=== PATIENT | male | born 1930 | race Caucasian/White ===

== ENCOUNTER 2017-02-09 08:50 | Outpatient (RCR) | payer OTHER | END 2017-02-20 | disposition home or self-care (01) | LOC: PTY 08:50 | PROVIDERS: ATTEND Internal Medicine | DX: M25.561 Pain in right knee (principal); G89.29 Other chronic pain ==

== ENCOUNTER 2017-02-23 14:30 | Outpatient (RCR) | payer OTHER | END 2017-03-23 | disposition home or self-care (01) | LOC: PTY 14:30 | PROVIDERS: ATTEND Internal Medicine | DX: M25.561 Pain in right knee (principal); G89.29 Other chronic pain ==

== ENCOUNTER 2017-12-14 12:30 | Outpatient (RCR) | payer OTHER | END 2017-12-21 | disposition home or self-care (01) | LOC: PTY 12:30 | PROVIDERS: ATTEND Internal Medicine | DX: M54.5 Low back pain (principal); G89.29 Other chronic pain; H91.90 Unspecified hearing loss, unspecified ear; M19.90 Unspecified osteoarthritis, unspecified site ==

== ENCOUNTER 2017-12-24 08:17 | Outpatient (RCR) | payer OTHER | END 2018-01-21 | disposition home or self-care (01) | LOC: PTY 08:17 | PROVIDERS: ATTEND Internal Medicine | DX: M54.5 Low back pain (principal); G89.29 Other chronic pain ==

== ENCOUNTER 2018-02-01 09:00 | Outpatient (RCR) | payer OTHER | END 2018-02-20 | disposition home or self-care (01) | LOC: PTY 09:00 | PROVIDERS: ATTEND Internal Medicine | DX: M54.5 Low back pain (principal); G89.29 Other chronic pain ==

== ENCOUNTER 2018-03-02 09:00 | Outpatient (RCR) | payer OTHER | END 2018-03-23 | disposition home or self-care (01) | LOC: PTY 09:00 | PROVIDERS: ATTEND Internal Medicine | DX: M54.5 Low back pain (principal); G89.29 Other chronic pain ==

== ENCOUNTER 2018-03-30 09:00 | Outpatient (RCR) | payer OTHER | END 2018-04-23 | disposition home or self-care (01) | LOC: PTY 09:00 | PROVIDERS: ATTEND Internal Medicine | DX: M54.5 Low back pain (principal); G89.29 Other chronic pain ==